=== PATIENT | male | born 1975 | race Caucasian/White ===

== ENCOUNTER 2017-12-12 13:35 | Emergency (ER) | payer MEDICAID, OTHER ==
[~2017-12-12] VITALS: Ht 177.8 cm; Wt 136.1 kg
--- NOTE | 2017-12-12 13:44 | ER Report ---
History and Physical Time Seen By MD: 13:44 [facility] HPI/ROS CHIEF COMPLAINT: Right arm pain HISTORY OF PRESENT ILLNESS: This is a 42-year-old male who presents to the emergency department for right shoulder and arm pain. Patient states that about 7-10 days ago he was at work at the [employer] and began to have some stiffness in his right shoulder and then the next 2 days he was lifting heavy boxes. Since then he's had increased numbness and tingling as well as decreased function of his right shoulder and bicep. Patient has been trying NSAIDs as well as Midol to help with the pain and muscle spasms of these and having. Patient denies nausea, vomiting, diarrhea, chest pain, shortness of breath and no visual changes. Denies cervical spine pain or injury. REVIEW OF SYSTEMS: Constitutional: No fever, no chills. Eyes: No discharge. ENT: No sore throat. Cardiovascular: No chest pain, no palpitations. Respiratory: No cough, no shortness of breath. Gastrointestinal: No abdominal pain, no vomiting. Genitourinary: No hematuria. Musculoskeletal: As above. Skin: No rashes. Neurological: No headache. (FLKAO LANDON [facility]) Allergies: Coded Allergies: No Known Drug Allergies (Unverified , 11/29/14) Home Meds Active Scripts Prednisone (PREDNISONE) 20 Mg Tablet, 20 MG PO BID, #10 TAB [facility] 12/12/17 Diazepam (VALIUM) 5 Mg Tablet, 5 MG PO 2-3XD, #15 TAB Prov:FLAKO LANDON [facility] 12/12/17 Reported Medications Ibuprofen (ADVIL) 200 Mg Capsule, 1-2 CAP PO Q6-8H, CAPSULE 12/12/17 Past Medical/Surgical History Patient has a past medical and surgical history of Buerger's target H 16, liver laceration, gallbladder disease, femur fracture, finger fracture, cholecystectomy, left femur surgery. [facility] Reviewed Nurses Notes: Yes (FLAKO LANDONPSANDRA) Hx Smoking: Yes Smoking Status: Current: Every Day Smoker Hx Substance Use Disorder: No Hx Alcohol Use: No (FLAKO LANDONEvelyn Constitutional Vital Sign - Last 24 Hours 12/12/17 13:41 Temp 97.9 Pulse 75 Resp 20 B/P (MAP) 205/132 Pulse Ox 92 O2 Delivery Room Air (DWAYNE RAMIREZ MD) Physical Exam General Appearance: The patient is alert, has no immediate need for airway protection and no signs of toxicity. Eyes: Pupils equal and round no pallor or injection. ENT, Mouth: Mucous membranes are moist. Respiratory: There are no retractions, lungs are clear to auscultation. Cardiovascular: Regular rate and rhythm, no murmurs, clicks or rubs. Gastrointestinal: Obese, round and non tender, no masses, bowel sounds normal. Neurological: Alert and oriented 4. Moving all extremities. Follows all commands. No focal neuro deficits. Skin: Warm and dry, no rashes. Musculoskeletal: Neck is supple non tender. Extremities Unable to flex right bicep, numbness and tingling to the right shoulder and lateral bicep. Unable to fully supinate right hand. Poor bicep reflexes bilaterally. Tenderness to right trapezius. DIFFERENTIAL DIAGNOSIS: After history and physical exam differential diagnosis was considered for right shoulder separation, thoracic outlet syndrome, bulging disc, nerve impingement. (FLAKO LANDON [facility]-) Medical Decision Making EKG/Imaging Imaging Location: [facility] - [place] Patient: Omar Archuleta : 1975 Visit/Account:[id number] Date of Sevice: 12/12/2017 Examination: SHOULDER MIN 2 VIEWS RIGHT Comparison: None. History: back and shoulder pain Findings: No fracture. Alignment and joint spaces are within normal limits. Visualized right lung is clear. Soft tissues are unremarkable. IMPRESSION: Negative right shoulder. Report Dictated By: Rivera Grewal MD at 12/12/2017 3:41 PM Report E-Signed By: Rivera Grewal MD at 12/12/2017 3:43 PM WSN:[id number] Location: [facility] [place] Patient: Omar Archuleta : 1975 Visit/Account:[id number] Date of Sevice: 12/12/2017 Single view of the orbits INDICATION: Pre-MRI. Evaluate for radiopaque foreign body. FINDINGS: Single Roger' view was obtained of the skull. No evidence of radiopaque foreign body overlying the bilateral orbits. The visualized paranasal sinuses appear patent. No acute osseous abnormality identified. IMPRESSION: No evidence of radiopaque foreign body overlying the orbits. Report Dictated By: Cholo Villegas at 12/12/2017 3:42 PM Report E-Signed By: Cholo Villegas at 12/12/2017 3:43 PM WSN:[id number] Location: [facility] [place] Patient: Omar Archuleta : 1975 Visit/Account:[id number] Date of Sevice: 12/12/2017 EXAMINATION: CT Cervical spine without intravenous contrast Comparison: None. History: Neck and right shoulder pain. Procedure: Multiplanar noncontrast cervical spine CT. One of the following dose optimization techniques was utilized in the performance of this exam: Automated exposure control; adjustment of the mA and/ or kV according to the patient's size; or use of an iterative reconstruction technique. Specific details can be referenced in the facility's radiology CT exam operational policy. FINDINGS: Alignment: Within normal limits. Cranio-cervical junction: Within normal limits. Vertebral bodies: Within normal limits. Posterior elements: Negative. Disc spaces: Disc spaces appear well-maintained. There is no definite CT evidence of spinal canal narrowing although of note, evaluation of the lower cervical spine is somewhat limited by the patient's imaging characteristics. The bony neural foramina are widely patent. Hardware: None. Soft tissues: Negative. IMPRESSION: Negative cervical spine CT. Report Dictated By: Rivera Grewal MD at 12/12/2017 5:15 PM Report E-Signed By: Rivera Grewal MD at 12/12/2017 5:21 PM WSN:[id number] ([facility]AK[facility] LANDON [facility]) ED Course/Re-evaluation ED Course Patient was admitted to room. A history physical were obtained. Differential diagnoses were considered. A right shoulder x-ray was obtained which was negative for any acute findings. MRI of the cervical spine was ordered however due to the patient's size we were unable to get the MRI. I did talk to Dr. Vidal as noted below and he suggested a CT of the cervical spine and follow- up with Dr. Estrada this week. The CT was negative for any acute findings. I discussed this with the patient and explained to him the next step would be an evaluation by Dr. Estrada. Patient expressed understanding and is ok with this plan of care. The patient was given Valium in the ED, hydrocodone 2. The patient was given a prescription for Valium and prednisone and told to call [facility] on Thursday. Patient was also given a note for work. The patient had no other questions or concerns at this time and was discharged home. Patient was also encouraged to return to emergency department for any other concerns or worsening symptoms. Also discussed his blood pressure concerns. Patient declines medications for his blood pressure. We did discuss lifestyle changes including decreasing sodium intake increasing water, decreasing the amount of soft drinks and improving his overall diet patient states he plans to make some changes and will try this before taking medications for his blood pressure. 12/12/2017 4:34:34 pm I did speak with Dr. Vidal from [facility] regarding the patients case and we were unable to get the MRI due to the patients wt. He suggested CT of the neck just to see if there is anything obvious that could be contributing to his bicep dysfunction and numbness and tinging. Also try a short steroid burst. Then have the patient follow up with Dr. Estrada this week. I did speak with the patient and he said that would be fine. Decision to Disposition Date: Dec 12, 2017 Decision to Disposition Time: 18:06 (FLAKO LANDON [facility]) ED Course Briefly patient is a 42-year-old male who presents to the emergency department for evaluation of right upper extremity weakness. 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 States that he noticed some soreness to the right shoulder area after working. Now is having difficulty with supination of the right arm also inability to flex at the bicep. Also reports numbness over the deltoid and lateral aspect of the right humerus. Patient denies chest pain or shortness of breath denies any other specific injuries. Exam is as above patient with 2 out of 5 biceps strength with contraction and 2-3 pronator strength patient is subjectively numb over the deltoid area and lateral aspect of the humerus. This is concerning for possible C5-C6 disc herniation. Plan at this time will be to image of the right shoulder to look for any acute bony pathology or possible subluxation although I think this is low we will then proceed to a noncontrast MRI of the C-spine. (DWAYNE RAMIREZ MD) ED Course 12/12/2017 4:48:25 pm Spoke with pt at length. understands unable to obtain MRI due to size. Orthopedics recommend ct of c-s [place] and then will see in follow up. Pts blood pressure is elevated. Reviewing old records he has had elevated blood pressure since 2013. pt states he is aware and does not want to be on medication for bp. When explained his increase risk of stroke or heart attack he states "you have to of something. I know people who have had both and had normal blood pressure. I dont like taking medications". (ELLE AMAYA DO) Depart Departure Latest Vital Signs Vital Signs Date Time Temp Pulse Resp B/P (MAP) Pulse Ox O2 Delivery O2 Flow Rate FiO2 12/12/17 13:41 97.9 75 20 205/132 92 Room Air (DWAYNE RAMIREZ MD) Impression: Primary Impression: Radicular pain of right upper extremity Condition: Improved Disposition: HOME OR SELF-CARE Referrals: TIFFANIE ESTRADA MD New Scripts Prednisone (PREDNISONE) 20 Mg Tablet 20 MG PO BID, #10 TAB Prov: FLAKO LANDON [facility]- 12/12/17 Diazepam (VALIUM) 5 Mg Tablet 5 MG PO 2-3XD, #15 TAB Prov: FLAKO LANDON [facility]- 12/12/17 Departure Forms: ER Transition Record, Medications Reconciliation, Off Work/ School Form, School or Work Release?: Work Number of days to be released: 7 Patient Portal Information Patient Instructions: Arm Pain (ED) Additional Instructions: Drink plenty of fluids. Get plenty of rest. Take the medications as indicated for pain. No drinking alcohol or driving while taking Valium. Please follow up with Dr. Estrada at [facility] this week. Please return to the ED for worsening symptoms. off work until follow up with Ortho this week. [facility] L[facility] Dec 12, 2017 13:44 DWAYNE RAMIREZ MD Dec 12, 2017 14:18 ELLE AMAYA DO Dec 12, 2017 16:50
[2017-12-12] MEDS ORDERED: IBUP200C74 PO (13:49)
[2017-12-12] MEDS ORDERED: APAP/HYDROCODONE 325/5 TAB PO ONE ×2 (14:05→16:35)
--- NOTE | 2017-12-12 15:45 | RADIOLOGY IMAGING REPORT ---
FACILITY: [facility] PATIENT NAME: Omar Archuleta : 1975 MR: [id number] V: [id number] EXAM DATE: ORDERING PHYSICIAN: FLAKO LANDON TECHNOLOGIST: Location: [facility] - [place] Patient: Omar Archuleta : 1975 Visit/Account:[id number] Date of Sevice: 12/12/2017 Examination: SHOULDER MIN 2 VIEWS RIGHT Comparison: None. History: back and shoulder pain Findings: No fracture. Alignment and joint spaces are within normal limits. Visualized right lung is clear. Soft tissues are unremarkable. IMPRESSION: Negative right shoulder. Report Dictated By: Rivera Grewal MD at 12/12/2017 3:41 PM Report E-Signed By: Rivera Grewal MD at 12/12/2017 3:43 PM WSN:[id number]
--- NOTE | 2017-12-12 15:47 | RADIOLOGY IMAGING REPORT ---
FACILITY: [facility] - [place] PATIENT NAME: Omar Archuleta : 1975 MR: [id number] V: [id number] EXAM DATE: ORDERING PHYSICIAN: FLAKO LANDON TECHNOLOGIST: Location: [facility] - [place] Patient: Omar Archuleta : 1975 Visit/Account:[id number] Date of Sevice: 12/12/2017 Single view of the orbits INDICATION: Pre-MRI. Evaluate for radiopaque foreign body. FINDINGS: Single Roger' view was obtained of the skull. No evidence of radiopaque foreign body over lying the bilateral orbits. The visualized paranasal sinuses appear patent. No acute osseous abnorm ality identified. IMPRESSION: No evidence of radiopaque foreign body overlying the orbits. Report Dictated By: Cholo Villegas at 12/12/2017 3:42 PM Report E-Signed By: Cholo Villegas at 12/12/2017 3:43 PM WSN:[id number]
[2017-12-12] MEDS ORDERED: DIAZEPAM 5 MG TAB PO ONE (16:50)
--- NOTE | 2017-12-12 17:26 | RADIOLOGY IMAGING REPORT ---
[place] [facility] [place] NAME: Omar Archuleta : 1975 MR: [id number] V: [id number] EXAM DATE: ORDERING PHYSICIAN: FLAKO LANDON TECHNOLOGIST: Location: [facility] [place] Patient: Omar Archuleta : 1975 Visit/Account:[id number] Date of Sevice: 12/12/2017 EXAMINATION: CT Cervical spine without intravenous contrast Comparison: None. History: Neck and right shoulder pain. Procedure: Multiplanar noncontrast cervical spine CT. One of the following dose optimization techniques was utilized in the performance of this exam: Autom ated exposure control; adjustment of the mA and/or kV according to the patient's size; or use of an i terative reconstruction technique. Specific details can be referenced in the facility's radiology C T exam operational policy. FINDINGS: Alignment: Within normal limits. Cranio-cervical junction: Within normal limits. Vertebral bodies: Within normal limits. Posterior elements: Negative. Disc spaces: Disc spaces appear well-maintained. There is no definite CT evidence of spinal canal deondre rowing although of note, evaluation of the lower cervical spine is somewhat limited by the patient's imaging characteristics. The bony neural foramina are widely patent. Hardware: None. Soft tissues: Negative. IMPRESSION: Negative cervical spine CT. Report Dictated By: Rivera Grewal MD at 12/12/2017 5:15 PM Report E-Signed By: Rivera Grewal MD at 12/12/2017 5:21 PM WSN:[id number]
[2017-12-12 17:31] VITALS: BP 195/127
[2017-12-12] MEDS ORDERED: DIA5 PO (18:16)
[2017-12-12] MEDS ORDERED: PRED20TA6 PO (18:19)
== END 2017-12-12 18:00 | disposition home or self-care (01) ==
LOC: ER 14:03
DX: M54.10 Radiculopathy, site unspecified (principal)
CPT/HCPCS: 70030; 72125; 72141; 99283